=== PATIENT | male | born 1950 | race Caucasian/White ===

== ENCOUNTER → 2017-08-01 | Outpatient (CLI) | payer OTHER ==
[~2017-08-01] VITALS: Ht 180.3 cm; Wt 125.0 kg
[~2017-08-01] MED LIST: ALLOPURINOL 10100 M1 PO; ASPIR 8181 MG PO; CARDURA4 MG PO; CLONIDINE0.1 PO; LISINOPRIL-HCT1 EACH PO; METFORMIN HCL500 MG PO; TOPROL XL25 MG PO
[2017-08-01 09:06] VITALS: BP 164/91
[2017-08-01 09:21] LABS: HEMATOCRIT 42.5 % (42.0-52.0); HEMOGLOBIN 14.3 gm/dL (14.0-18.0); MCH 30.1 pg (26.0-34.0); MCHC 33.6 g/dL (28.0-37.0); MCV 89.5 fL (80.0-100.0); MPV 8.6 fl. (7.2-11.1); RBC 4.75 mil/uL (4.50-6.00); RDW-CV 13.6 % (10.5-14.5); WBC 7.5 thou/uL (4.0-11.0)
[2017-08-01 09:29] LABS: APTT 23.6 Seconds (25.0-31.3); PROTIME 9.7 Seconds (9.20-11.50)
== END | disposition home or self-care (01) ==
LOC: M.ULTRA 08:30
PROVIDERS: Radiology Radiation Oncology
DX: C61 Malignant neoplasm of prostate (principal); E11.9 Type 2 diabetes mellitus without complications; G47.33 Obstructive sleep apnea (adult) (pediatric); N40.1 Benign prostatic hyperplasia with lower urinary tract symptoms; Z83.3 Family history of diabetes mellitus; Z87.891 Personal history of nicotine dependence

== ENCOUNTER → 2019-09-10 | Outpatient (CLI) | payer OTHER | LOC: M.MRI 13:14 | DX: S83.242A Other tear of medial meniscus, current injury, left knee, initial encounter (principal); M25.762 Osteophyte, left knee; M25.462 Effusion, left knee; M71.22 Synovial cyst of popliteal space [Baker], left knee; M17.12 Unilateral primary osteoarthritis, left knee; X58.XXXA Exposure to other specified factors, initial encounter; Y93.89 Activity, other specified; Y92.89 Other specified places as the place of occurrence of the external cause; Y99.8 Other external cause status ==

== ENCOUNTER 2019-09-13 07:04 | Inpatient (IN) | payer OTHER ==
[~2019-09-13] VITALS: Ht 180.3 cm; Wt 117.9 kg
[2019-10-01] MEDS ORDERED: CATAPRES0.1 MG PO (16:36)
[2019-10-01] MEDS ORDERED: AMARYL4 MG PO (16:37)
[2019-10-01] MEDS ORDERED: CENTRUM SILVER1 EAC4 PO (16:38)
[2019-10-07 10:21] LABS: HEMATOCRIT 37.2 % (42.0-52.0); HEMOGLOBIN 12.5 gm/dL (14.0-18.0); MCH 29.8 pg (26.0-34.0); MCHC 33.6 g/dL (28.0-37.0); MCV 88.7 fL (80.0-100.0); MPV 7.7 fl. (7.2-11.1); RBC 4.19 mil/uL (4.50-6.00); RDW-CV 13.9 % (10.5-14.5); WBC 5.3 thou/uL (4.0-11.0)
[2019-10-07 10:33] LABS: URINE BILIRUBIN NEGATIVE (Negative); URINE BLOOD NEGATIVE (Negative); URINE CLARITY CLEAR; URINE COLOR YELLOW; URINE GLUCOSE-RANDOM NEGATIVE (Negative); URINE KETONES NEGATIVE (Negative); URINE LEUKOCYTES-REFLEX NEGATIVE (Negative); URINE NITRITE-REFLEX NEGATIVE (Negative); URINE PROTEIN NEGATIVE (Negative); URINE SPECIFIC GRAVITY >= 1.030 (1.005-1.030); URINE UROBILINOGEN 0.2 E.U./dl (0.2-1.0)
[2019-10-07 10:39] LABS: PROTIME 9.8 Seconds (9.20-11.50)
[2019-10-07 11:01] LABS: ALBUMIN 3.3 g/dL (3.4-5.0); CALCIUM 8.6 mg/dL (8.5-10.1); POTASSIUM 4.3 mmol/L (3.5-5.1); TOTAL BILIRUBIN 0.2 mg/dL (<0.1-1.0); TOTAL PROTEIN 6.3 g/dL (6.4-8.2)
--- NOTE | 2019-10-07 12:33 | EKG ---
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
[2019-10-14 09:00] VITALS: BP 130/67
[2019-10-14 13:40] VITALS: BP 133/74
[2019-10-14 16:00] VITALS: BP 144/66
[2019-10-14] MEDS ORDERED: PERCOCET PO (16:17)
[2019-10-14] MEDS ORDERED: COLACE100 MG PO (16:18)
[2019-10-14] MEDS ORDERED: XARELTO10 MG PO (16:18)
[2019-10-14 16:19] VITALS: BP 133/74
--- NOTE | 2019-10-14 17:07 | NUR ---
PT ADMITTED TO RM 105 FROM PACU S/P LTKR. PT STABLE, AOx4, DROWSY ON ARRIVAL BUT EASILY AROUSED. POLAR PACK IN PLACE, SURGICAL DRSG CDI. PT ON 4L O2 TO MAINTAIN O2 SATS. RECEIVING IVF AND TOLERATING WELL. PT C/O MINIMAL PAIN SINCE ARRIVAL AND ADVANCED TO REG DIET.
[2019-10-14 19:30] VITALS: BP 134/65
[2019-10-14 23:17] VITALS: BP 132/80
[2019-10-15 03:19] VITALS: BP 121/76
[2019-10-15 03:26] LABS: HEMATOCRIT 31.2 % (42.0-52.0); HEMOGLOBIN 10.8 gm/dL (14.0-18.0)
--- NOTE | 2019-10-15 04:14 | NUR ---
PT A&O, ON 2L NC WITH CAPNO, VSS, IV FLUIDS INFUSING ORDERED, HEMO VAC IN PLACE, PAIN MEDS REQUESTED AND GIVEN ORDERED. WILL CONTINUE WITH PLAN OF CARE.
[2019-10-15 07:20] VITALS: BP 141/88
[2019-10-15 12:01] VITALS: BP 129/65
--- NOTE | 2019-10-15 12:19 | NUR ---
PT.VOMITED EARLIER. TRYING TO EAT SOME LUNCH AT THIS TIME. AT BEDSIDE. HE HOPES TO GET TO GO HOME LATER TODAY. HE WAS AGREEABLE TO HOME HEALTH WITH [facility]. FAXED REFERRAL TO [facility]/INTAKE [phone]. IF DISCHARGED THIS AFTERNOON CM WILL FAX DISCHARGE SUMMARY TO [facility]. PT.HAS A FRONT WHEEL WALKER IN ROOM,FROM HOME. WILL BE WITH HTM AT HOME 13/11. HE SAID HE IS NORMALLY INDEPENDENT AT HOME. 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
--- NOTE | 2019-10-15 12:27 | OP ---
[facility] [address] [place] [address] OPERATIVE REPORT Name: ROWENA WILBURN Room: [address] IN .R.#: [id number] Admission: 10/14/19 Attend Phys: Pepe Cornejo Discharge: Date of : 50 Report #: [id number] THIS REPORT FOR: //name// cc: Cameron Alvarado MD, Louis A. MD ~ THIS REPORT FOR: //name// CC: Cameron Colunga DATE OF SERVICE: 10/14/2019 PREOPERATIVE DIAGNOSIS: Left knee osteoarthritis. POSTOPERATIVE DIAGNOSIS: Left knee osteoarthritis. PROCEDURE: Left total knee arthroplasty. SURGEON: Pavel Retana II, DO. EXECUTIVE ACCOUNT MANAGER: JUSTYNA Mike. ANESTHESIA: General endotracheal. ESTIMATED BLOOD LOSS: 50 mL. ANTIBIOTICS: Ancef preoperatively. DRAINS: Medium Hemovac. COMPLICATIONS: None. CONDITION OF THE PATIENT: Stable to recovery room. IMPLANTS: Listed in operative record and progress note. BRIEF HISTORY: The patient is seen in preoperative area. Preoperative H and P was performed. Site was marked, questions were answered. Risks and benefits were discussed with the patient in detail about surgery. The patient wished to proceed, assuming all risks. DESCRIPTION OF PROCEDURE: The patient was taken to the operative suite and placed supine on the operative table, given appropriate anesthesia. A well-padded tourniquet was applied to upper thigh, which was inflated to 300 mmHg after gravity exsanguination. The operative knee was sterilely prepped and [facility] [address] [place] [address] OPERATIVE REPORT Name: ROWENA WILBURN Room: [address] IN M.R.#: [id number] Admission: 10/14/19 Attend Phys: Pepe Cornejo Discharge: Date of : 50 Report #: [id number] draped. Surgery began by midline incision. This was carried down to the subcutaneous tissues. A medial parapatellar arthrotomy was performed and carried down to bone. Patella was then everted and excess soft tissue removed from around the femur. Femoral cutting block was then applied, checked with drop jero for rotational alignment, pinned in appropriate position and appropriate cuts were made. A 4-in-1 cutting block was then applied, checked for rotational alignment, pinned in appropriate position and appropriate cuts were made. The tibia was then exposed. Excess meniscus was removed. Retractor was placed on collateral ligaments. The tibial cutting block was then applied, pinned in appropriate position, checked with drop jero for rotational alignment and slope and appropriate cut was made. The tibial bone was removed. The tibial base plate was then applied, checked for rotational alignment with the drop jero and pinned in appropriate position. The femur was then applied and box cut was reamed. This was then trialed with appropriate spacer, which showed excellent fit and fill and excellent stability of the knee through all range of motion. The patella was reamed in appropriate fashion and sized to appropriate size, three peg holes were drilled, knee was then trialed and showed excellent flexion and extension, excellent tracking of the patella within the groove. These trials were removed. The tibia was punched in appropriate fashion. Bone ends were cleansed with Pulsavac irrigation and cement was mixed and applied to final implants. These were then malleted into position and held the knee in extension and compressed to allow cement to cure. After it cured, excess was removed utilizing a Street and osteotome. Wound was then copiously irrigated and the final spacer was then malleted into position. The tourniquet was deflated. Hemostasis was obtained with electrocautery. Pain cocktail was injected. PRP gel sprayed throughout the internal aspects of the knee. Medium Hemovac drain was applied. Capsule was closed with #2 FiberWire and #1 Vicryl in [id number] fashion. Skin was closed with 2-0 Vicryl and running 3-0 Monocryl. Dermabond and sterile dressing applied. Adrian wrap and PolarCare applied. The patient transported to recovery room in stable condition. Counts were correct throughout the procedure. <ELECTRONICALLY SIGNED> By: Pavel Retana II, DO 10/15/19 1227 2140 [id number] Retana II, DO /nt
--- NOTE | 2019-10-15 12:48 | NUR ---
RECIEVED O.T. ORDERS. WILL DEFER TO P.T. AT THIS TIME. PLEASE ORDER FURTHER O.T. SERVICES IF NEEDED.
[2019-10-15 15:46] VITALS: BP 117/91
--- NOTE | 2019-10-15 16:43 | NUR ---
PER NURSING, PT HAS PASSED THERAPY AND NO FURTHER VOMITING. WILL DISCHARGE THIS EVENING ABOUT 6 PM. NOTIFIED [facility] INTAKE PT.DISCHARGEING AND FAXED DISCHARGE SUMMARY TO THEM.
[2019-10-15 17:09] VITALS: BP 133/74
--- NOTE | 2019-10-15 17:10 | NUR ---
PT REMAINED ALERT AND ORIENTED. PT IV REMOVED. PT TOLERATED DINNER AND PAIN MEDS WITHOUT VOMITING. PT GIVEN DISCHARGE INFORMATION, CARE NOTES, AND PRESCRIPTIONS. PT LEFT WITH POLAR PACK, CPM, AND WALKER. FALL RISK PRECAUTIONS IN PLACE. HOURLY ROUNDING COMPLETED. PT LEFT VIA WHEELCHAIR WITH NURSING STAFF TO HOME WITH HOME HEALTH.
== END 2019-10-15 17:12 | disposition home health service (06) | DRG 470 ==
LOC: M.PRE 07:04 → M.TBA 10-14 08:23 → M.ORTHSURG 10-14 08:23 → M.PRE 10-14 14:09 → M.ORTHSURG 10-15 17:12
PROVIDERS: Orthopaedic Surgery; ADMIT Internal Medicine; ATTEND Internal Medicine
PROC: 3E0T3BZ Introduction of Anesthetic Agent into Peripheral Nerves and Plexi, Percutaneous Approach (ICD-10-PCS; principal; 2019-10-14)
PROC: 0SRD0J9 Replacement of Left Knee Joint with Synthetic Substitute, Cemented, Open Approach (ICD-10-PCS; principal; 2019-10-14)
DX: M17.12 Unilateral primary osteoarthritis, left knee (principal); M10.022 Idiopathic gout, left elbow; G47.33 Obstructive sleep apnea (adult) (pediatric); N40.0 Benign prostatic hyperplasia without lower urinary tract symptoms; E11.40 Type 2 diabetes mellitus with diabetic neuropathy, unspecified; I10 Essential (primary) hypertension; M25.462 Effusion, left knee; Z85.46 Personal history of malignant neoplasm of prostate; Z85.89 Personal history of malignant neoplasm of other organs and systems; Z88.0 Allergy status to penicillin; Z92.21 Personal history of antineoplastic chemotherapy; Z92.3 Personal history of irradiation; Z79.84 Long term (current) use of oral hypoglycemic drugs; Z79.82 Long term (current) use of aspirin; Z79.899 Other long term (current) drug therapy; Z72.89 Other problems related to lifestyle; Z72.0 Tobacco use; Z03.818 Encounter for observation for suspected exposure to other biological agents ruled out